=== PATIENT | male | born 1940 | race Caucasian/White ===

== ENCOUNTER 2019-12-11 03:48 | Observation (INO) | payer MEDICARE, BC ==
[2019-12-11] MEDS ORDERED: Sodium Chloride 0.9% 1,000 ML IV ONE (03:54)
[2019-12-11 04:57] LABS: ANION GAP 13.8
--- NOTE | 2019-12-11 05:01 | EDM.PDOC ---
"ED HPI GENERAL MEDICAL PROBLEM - General Chief Complaint: Gastrointestinal Problem Stated Complaint: STOMACH ISSUE-DIVERTICULITIS? Time Seen by Provider: 12/11/19 03:55 Source of Information: Reports: Patient, RN History Limitations: Reports: No Limitations - History of Present Illness INITIAL COMMENTS - FREE TEXT/NARRATIVE: c/o abdominal pain, bloating since yesterday morning, vomiting tonight. Diarrhea x 2 yesterday am at onset. Has hx diverticulitis and sx seem similar. Low grade temps tonight. - Related Data Allergies Allergy/AdvReac Type Severity Reaction Status Date / Time No Known Allergies Allergy Verified 12/11/19 03:55 Home Meds: Home Meds RX: Arginine 500 mg PO DAILY 11/01/14 [History] RX: Dutasteride [Avodart] 0.5 mg PO DAILY 11/01/14 [History] RX: Ezetimibe [Zetia] 10 mg PO BEDTIME 11/01/14 [History] RX: Flaxseed Oil 1,000 mg PO BEDTIME 11/01/14 [History] RX: Levothyroxine Sodium 75 mcg PO DAILY 11/01/14 [History] RX: Metoprolol Tartrate [Lopressor] 12.5 mg PO BID 11/01/14 [History] RX: Multivitamin [Multivitamins] 1 tab PO DAILY 11/01/14 [History] RX: Nitroglycerin [Nitrostat] 0.4 mg PO ASDIRECTED PRN 11/01/14 [History] RX: Omeprazole 20 mg PO DAILY 11/01/14 [History] RX: Ramipril [Altace] 10 mg PO BEDTIME 11/01/14 [History] RX: Simvastatin 20 mg PO BEDTIME 11/01/14 [History] RX: Aspirin [Ecotrin EC] 81 mg PO DAILY 07/14/15 [History] RX: Docusate Calcium [Surfak] 1 tab PO DAILY 07/14/15 [History] Past Medical History HEENT History: Reports: Allergic Rhinitis, Impaired Vision Cardiovascular History: Reports: Bypass, CAD, High Cholesterol, Hypertension Respiratory History: Reports: None Gastrointestinal History: Reports: Diverticulosis, GERD Genitourinary History: Reports: BPH, Prostate Disorder Musculoskeletal History: Reports: Osteoarthritis Other Musculoskeletal History: Lt. knee Meniscus problems, receives cortisone injections Neurological History: Reports: None Psychiatric History: Reports: Anxiety Endocrine/Metabolic History: Reports: Hypothyroidism, Other (See Below) Hematologic History: Reports: None Immunologic History: Reports: None Oncologic (Cancer) History: Reports: None Dermatologic History: Reports: None - Infectious Disease History Infectious Disease History: Reports: Chicken Pox, Shingles - Past Surgical History Head Surgeries/Procedures: Reports: None Cardiovascular Surgical History: Reports: Coronary Artery Bypass GI Surgical History: Reports: Colonoscopy, Hernia, Inguinal Musculoskeletal Surgical History: Reports: Other (See Below) Social & Family History - Family History Family Medical History: Noncontributory - Tobacco Use Smoking Status *Q: Never Smoker - Caffeine Use Caffeine Use: Reports: None - Recreational Drug Use Recreational Drug Use: No - Living Situation & Occupation Living situation: Reports: , with Spouse Occupation: Retired ED ROS GENERAL - Review of Systems Review Of Systems: Comprehensive ROS is negative, except as noted in HPI. ED EXAM, GI/ABD - Physical Exam Exam: See Below Exam Limited By: No Limitations General Appearance: Alert, Mild Distress Ears: Normal External Exam. No: Hearing Grossly Normal (slight decrease) Nose: Normal Inspection Throat/Mouth: Normal Inspection, Normal Voice Head: Atraumatic, Normocephalic Neck: Normal Inspection, Full Range of Motion Respiratory/Chest: No Respiratory Distress, Lungs Clear, Normal Breath Sounds Cardiovascular: Regular Rate, Rhythm GI/Abdominal Exam: Soft, No Distention, Tender (mild upper mid greater than lower), Abnormal Bowel Sounds (slight decrease). No: Guarding, Rigid Back Exam: Full Range of Motion Extremities: Normal Inspection, Normal Range of Motion Neurological: Alert, Oriented, Normal Cognition Psychiatric: Normal Affect Skin Exam: Warm, Dry, Intact, Normal Color, No Rash Course - Vital Signs Last Recorded V/S: Last Vital Signs Temp 98 F 12/12/19 04:00 Pulse 58 L 12/12/19 04:00 Resp 18 12/12/19 04:00 BP 156/69 H 12/12/19 04:00 Pulse Ox 97 12/12/19 04:00 - Orders/Labs/Meds Orders: Active Orders 24 hr Category Date Time Status CULTURE BLOOD [BC] Stat Lab 12/11/19 07:05 Received CULTURE BLOOD [BC] Stat Lab 12/11/19 07:09 Received Blood Culture x2 Reflex Set [OM.PC] Stat Oth 12/11/19 06:58 Ordered Medication Orders Acetaminophen (Tylenol) 650 mg PO Q4H PRN PRN Reason: Pain (Mild 1-3)/fever Last Admin: 12/11/19 16:13 Dose: 650 mg Aspirin (Halfprin) 81 mg PO DAILY [facility] Dutasteride (Avodart) 0.5 mg PO DAILY [facility] Famotidine (Pepcid) 20 mg IVPUSH DAILY [facility] Heparin Sodium (Porcine) (Heparin Sodium) 5,000 units SUBCUT Q8HR [facility] Last Admin: 12/11/19 22:00 Dose: 5,000 units Admin: 12/11/19 14:47 Dose: 5,000 units Potassium Chloride/Sodium Chloride (Normal Saline With 20 Meq Kcl) 1,000 mls @ 125 mls/hr IV ASDIRECTED [facility] Last Admin: 12/12/19 03:50 Dose: 125 mls/hr Infusion: 12/12/19 03:33 Dose: 125 mls/hr Admin: 12/11/19 19:33 Dose: 125 mls/hr Infusion: 12/11/19 18:42 Dose: 125 mls/hr Admin: 12/11/19 10:42 Dose: 125 mls/hr Levothyroxine Sodium (Levothyroxine) 75 mcg PO ACBREAKFAST [facility] Metoprolol Tartrate (Lopressor) 12.5 mg PO BID [facility] Last Admin: 12/11/19 21:59 Dose: 12.5 mg Morphine Sulfate (Morphine) 1 mg IVPUSH Q2H PRN PRN Reason: Pain (severe 7-10) Omeprazole (Omeprazole) 20 mg PO BID@0600,2100 [facility] Last Admin: 12/11/19 22:00 Dose: 20 mg Admin: 12/11/19 10:55 Dose: Not Given Ondansetron HCl (Zofran) 4 mg IVPUSH Q6H PRN PRN Reason: Nausea/Vomiting Ondansetron HCl (Zofran Odt) 4 mg PO Q6H PRN PRN Reason: nausea, able to take PO Ramipril 10 Mg Cap (Pt Own Med) 0 each PO BEDTIME [facility] Last Admin: 12/11/19 21:58 Dose: 1 each Sodium Chloride (Saline Flush) 10 ml FLUSH ASDIRECTED PRN PRN Reason: Keep Vein Open Temazepam (Restoril) 15 mg PO BEDTIME PRN PRN Reason: Sleep Labs: Laboratory Tests 12/11/19 12/11/19 12/11/19 Range/Units 04:21 04:21 04:21 WBC 14.0 H (5.0-10.0) 10^3/uL RBC 4.93 (4.6-6.2) 10^6/uL Hgb 15.0 (14.0-18.0) g/dL Hct 43.2 (40.0-54.0) % MCV 87.6 (80-100) fL MCH 30.4 (27.0-34.0) pg MCHC 34.7 (33.0-35.0) g/dL Plt Count 214 D (150-450) 10^3/uL Neut % (Auto) 92.9 H (42.2-75.2) % Lymph % (Auto) 1.7 L (20.5-50.1) % Mcmullen % (Auto) 5.3 (2-8) % Eos % (Auto) 0.0 L (1.0-3.0) % Baso % (Auto) 0.1 (0.0-1.0) % Sodium 136 (135-145) mmol/L Potassium 3.8 (3.6-5.0) mmol/L Chloride 104 (101-111) mmol/L Carbon Dioxide 22.0 (21.0-31.0) mmol/L Anion Gap 13.8 BUN 28 H (7-18) mg/dL Creatinine 1.3 (0.6-1.3) mg/dL Est Cr Clr Drug Dosing 42.26 mL/min Estimated GFR (MDRD) 53 BUN/Creatinine Ratio 21.53 Glucose 181 H (74-105) mg/dL Lactic Acid 1.6 (0.5-2.0) mmol/L Calcium 8.9 (8.4-10.2) mg/dl Magnesium (1.8-2.5) mg/dL Total Bilirubin 1.0 (0.2-1.0) mg/dL AST 25 (10-42) IU/L ALT 21 (10-60) IU/L Alkaline Phosphatase 63 (42-121) IU/L Troponin I (0.00-0.02) ng/ml Total Protein 7.0 (6.7-8.2) g/dl Albumin 4.1 (3.2-5.5) g/dl Globulin 2.9 Albumin/Globulin Ratio 1.41 Amylase 59 (28-100) U/L Lipase 26 (22-51) U/L Urine Color (YELLOW) Urine Appearance (CLEAR) Urine pH (5.0-9.0) Ur Specific [place] (1.005-1.030) Urine Protein (NEGATIVE) Urine Glucose (UA) (NEGATIVE) Urine Ketones (NEGATIVE) Urine Occult Blood (NEGATIVE) Urine Nitrite (NEGATIVE) Urine Bilirubin (NEGATIVE) Urine Urobilinogen (0.2-1.0) mg/dL Ur Leukocyte Esterase (NEGATIVE) Urine RBC /HPF Urine WBC (0-5/HPF) /HPF Ur Epithelial Cells (NOT SEEN) /HPF Amorphous Sediment (NOT SEEN) /HPF Urine Bacteria (0-FEW/HPF) /HPF Fine Granular Casts (NOT SEEN) /LPF Urine Mucus (NOT SEEN) /LPF 12/11/19 12/11/19 12/11/19 Range/Units 04:21 04:21 05:24 WBC (5.0-10.0) 10^3/uL RBC (4.6-6.2) 10^6/uL Hgb (14.0-18.0) g/dL Hct (40.0-54.0) % MCV (80-100) fL MCH (27.0-34.0) pg MCHC (33.0-35.0) g/dL Plt Count (150-450) 10^3/uL Neut % (Auto) (42.2-75.2) % Lymph % (Auto) (20.5-50.1) % Mcmullen % (Auto) (2-8) % Eos % (Auto) (1.0-3.0) % Baso % (Auto) (0.0-1.0) % Sodium (135-145) mmol/L Potassium (3.6-5.0) mmol/L Chloride (101-111) mmol/L Carbon Dioxide (21.0-31.0) mmol/L Anion Gap BUN (7-18) mg/dL Creatinine (0.6-1.3) mg/dL Est Cr Clr Drug Dosing mL/min Estimated GFR (MDRD) BUN/Creatinine Ratio Glucose (74-105) mg/dL Lactic Acid (0.5-2.0) mmol/L Calcium (8.4-10.2) mg/dl Magnesium 1.9 (1.8-2.5) mg/dL Total Bilirubin (0.2-1.0) mg/dL AST (10-42) IU/L ALT (10-60) IU/L Alkaline Phosphatase (42-121) IU/L Troponin I < 0.02 (0.00-0.02) ng/ml Total Protein (6.7-8.2) g/dl Albumin (3.2-5.5) g/dl Globulin Albumin/Globulin Ratio Amylase (28-100) U/L Lipase (22-51) U/L Urine Color Dark yellow (YELLOW) Urine Appearance Slightly cloudy (CLEAR) Urine pH 6.0 (5.0-9.0) Ur Specific [place] >= 1.030 (1.005-1.030) Urine Protein 30 H (NEGATIVE) Urine Glucose (UA) Negative (NEGATIVE) Urine Ketones 15 H (NEGATIVE) Urine Occult Blood Trace-intact H (NEGATIVE) Urine Nitrite Negative (NEGATIVE) Urine Bilirubin Negative (NEGATIVE) Urine Urobilinogen 0.2 (0.2-1.0) mg/dL Ur Leukocyte Esterase Negative (NEGATIVE) Urine RBC 0-5 /HPF Urine WBC Not seen (0-5/HPF) /HPF Ur Epithelial Cells Rare (NOT SEEN) /HPF Amorphous Sediment Few (NOT SEEN) /HPF Urine Bacteria Few (0-FEW/HPF) /HPF Fine Granular Casts Occasional H (NOT SEEN) /LPF Urine Mucus Few H (NOT SEEN) /LPF Meds: Medications Generic Name Dose Route Start Last Admin Trade Name Jose PRN Reason Stop Dose Admin Acetaminophen 650 mg 12/11/19 10:14 12/11/19 16:13 Tylenol PO 650 mg Q4H PRN Administration Pain (Mild 1-3)/fever Aspirin 81 mg 12/11/19 16:28 Halfprin PO DAILY [facility] Dutasteride 0.5 mg 12/11/19 16:25 Avodart PO DAILY [facility] Famotidine 20 mg 12/12/19 09:00 Pepcid IVPUSH DAILY [facility] Heparin Sodium (Porcine) 5,000 units 12/11/19 14:00 12/11/19 22:00 Heparin Sodium SUBCUT 5,000 units Q8HR [facility] Administration Potassium Chloride/Sodium Chloride 1,000 mls @ 125 mls/hr 12/11/19 10:30 03:50 Normal Saline With 20 Meq Kcl IV 125 mls/hr ASDIRECTED [facility] Administration Levothyroxine Sodium 75 mcg 12/11/19 16:29 Levothyroxine PO ACBREAKFAST [facility] Metoprolol Tartrate 12.5 mg 12/11/19 21:00 12/11/19 21:59 Lopressor PO 12.5 mg BID [facility] Administration Morphine Sulfate 1 mg 12/11/19 10:14 Morphine IVPUSH Q2H PRN Pain (severe 7-10) Omeprazole 20 mg 12/11/19 10:15 12/11/19 22:00 Omeprazole PO 20 mg BID@0600,2100 [facility] Administration Ondansetron HCl 4 mg 12/11/19 10:14 Zofran IVPUSH Q6H PRN Nausea/Vomiting Ondansetron HCl 4 mg 12/11/19 10:14 Zofran Odt PO Q6H PRN nausea, able to take PO Ramipril 10 Mg Cap 0 each 12/11/19 21:00 12/11/19 21:58 Pt Own Med PO 1 each BEDTIME [facility] Administration Sodium Chloride 10 ml 12/11/19 10:14 Saline Flush FLUSH ASDIRECTED PRN Keep Vein Open Temazepam 15 mg 12/11/19 10:14 Restoril PO BEDTIME PRN Sleep Discontinued Medications Generic Name Dose Route Start Last Admin Trade Name Freq PRN Reason Stop Dose Admin Aspirin 81 mg 12/11/19 11:00 12/11/19 10:55 Halfprin PO Not Given DAILY [facility] Dutasteride 0.5 mg 12/11/19 11:00 12/11/19 10:55 Avodart PO Not Given DAILY [facility] Famotidine 20 mg 12/11/19 06:18 12/11/19 06:23 Pepcid IVPUSH 12/11/19 06:19 20 mg ONETIME ONE Administration Famotidine 20 mg 12/11/19 11:15 12/11/19 13:42 Pepcid IVPUSH Not Given BID [facility] Sodium Chloride 1,000 mls @ 500 mls/hr 12/11/19 03:54 12/11/19 04:39 Normal Saline IV 12/11/19 05:53 500 mls/hr .BOLUS ONE Administration Ceftriaxone Sodium 1 gm/ 50 mls @ 50 mls/hr 12/11/19 06:50 12/11/19 07:18 Sodium Chloride IV 12/11/19 07:49 50 mls/hr ONETIME ONE Administration Iopamidol 100 ml 12/11/19 05:06 12/11/19 06:30 Isovue-300 (61%) IVPUSH 12/11/19 05:07 75 ml ONETIME ONE Administration Levothyroxine Sodium 75 mcg 12/11/19 10:15 12/11/19 10:55 Levothyroxine PO Not Given ACBREAKFAST [facility] Metoprolol Tartrate 12.5 mg 12/11/19 10:15 12/11/19 10:45 Lopressor PO 12.5 mg BID [facility] Administration Ramipril Confirm 12/11/19 20:34 12/11/19 21:59 Altace Administered 12/11/19 20:35 10 mg Dose Administration 10 mg .[facility] Interpretation Free Text/Narrative:: [facility] - [facility] Final Radiology Report Call: [phone] assistance Online chat: [email or web address] Name: ЮЛИЯ HUGGINS Age: 79Years M Date: 12/11/2019 SSN: -- : [id number] Study: CT ABDOMEN/PELVIS W Requesting Physician: LAWANDA RIVAS Images: [id number] Addl Studies: Provided Clinical History: ABDOMINAL PAIN, BLOATING Contrast: With Contrast Medium: ISOVUE 300 Contrast Amount: 75 mL Contrast Method: RAC Page 1 of 2 PROCEDURE INFORMATION: Exam: CT Abdomen And Pelvis With Contrast Exam date and time: 12/11/2019 5:55 AM Age: 79 years old Clinical indication: Bloating; Additional info: Abdominal pain, bloating TECHNIQUE: Imaging protocol: Computed tomography of the abdomen and pelvis with intravenous contrast. Radiation optimization: All CT scans at this facility use at least one of these dose optimization techniques: automated exposure control; mA and/or kV adjustment per patient size (includes targeted exams where dose is matched to clinical indication); or iterative reconstruction. Contrast material: ISOVUE 300; Contrast volume: 75 ml; Contrast route: RAC; COMPARISON: CT Abdomen Pelvis w Cont 06/23/2015 10:17 AM FINDINGS: Mediastinum: small hiatal hernia. Liver: Normal. No mass. Gallbladder and bile ducts: Normal. No calcified stones. No ductal dilation. Pancreas: Normal. No ductal dilation. Spleen: Normal. No splenomegaly. Adrenals: 3.8 cm right adrenal mass stable since the prior study dated 2014. 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 The mass extends into the right renal pelvis and is causing mild hydronephrosis of the right kidney with decreased function of the right kidney noted. Stomach and bowel: dilated loops of large and small bowel consistent with an ileus. Colonic diverticulosis but no diverticulitis. Appendix: No evidence of appendicitis. ЮЛИЯ HUGGINS | Final Radiology Report CONFIDENTIALITY STATEMENT This report is intended only for use by the referring physician, and only in accordance with law. If you received this in error, call [phone]. Page 2 of 2 Intraperitoneal space: Unremarkable. No free air. No significant fluid collection. Vasculature: The mass extends into the right renal vein but not into the IVC. Lymph nodes: Unremarkable. No enlarged lymph nodes. Bladder: Unremarkable as visualized. Reproductive: enlarged prostate gland. Bones/joints: Unremarkable. No acute fracture. Soft tissues: Unremarkable. IMPRESSION: 1. 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 The mass extends into the right renal pelvis and is causing mild hydronephrosis of the right kidney with decreased function of the right kidney noted. The mass also extends into the right renal vein but not into the IVC. 3. Dilated loops of large and small bowel consistent with an ileus. 4. Enlarged prostate gland. 5. Colonic diverticulosis but no diverticulitis. Thank you for allowing us to participate in the care of your patient. Dictated and Authenticated by: Julien Rhodes MD 12/11/2019 6:35 AM Central Time ([place] & [place]) - Re-Assessments/Exams Free Text/Narrative Re-Assessment/Exam: 12/11/19 07:[address] Cantu accepting patient for observation admission [facility]. Results of CT reviewed with patient and his . Departure - Departure Time of Disposition: 07:14 Disposition: Refer to Observation Condition: Good Clinical Impression: Diverticulosis of sigmoid colon, Renal mass - Discharge Information *PRESCRIPTION DRUG MONITORING PROGRAM REVIEWED*: No *COPY OF PRESCRIPTION DRUG MONITORING REPORT IN PATIENT ZENAIDA: No Sepsis Event Note - Evaluation Sepsis Screening Result: No Definite Risk - Focused Exam Date Exam was Performed: 12/12/19 Time Exam was Performed: 04:28 - My Orders Last 24 Hours: My Active Orders 12/11/19 06:58 Blood Culture x2 Reflex Set [OM.PC] Stat 12/11/19 07:05 CULTURE BLOOD [BC] Stat 12/11/19 07:09 CULTURE BLOOD [BC] Stat - Assessment/Plan Last 24 Hours: My Active Orders 12/11/19 06:58 Blood Culture x2 Reflex Set [OM.PC] Stat 12/11/19 07:05 CULTURE BLOOD [BC] Stat 12/11/19 07:09 CULTURE BLOOD [BC] Stat"
[2019-12-11] MEDS ORDERED: Iopamidol 612 MG/ML 100 ML Bottle IVPUSH ONE (05:06)
[2019-12-11] MEDS ORDERED: Famotidine 20 MG/2 ML SDV IVPUSH ONE (06:18)
[2019-12-11] MEDS ORDERED: cefTRIAXone 1 GM in Sodium Chloride 0.9% 50 ML IV ONE (06:50)
[2019-12-11] MEDS ORDERED: Temazepam 15 MG Cap PO PRN (10:14)
[2019-12-11] MEDS ORDERED: Acetaminophen 325 MG Tab PO PRN (10:14)
[2019-12-11] MEDS ORDERED: Ondansetron 4 MG/2 ML SDV IVPUSH PRN (10:14)
[2019-12-11] MEDS ORDERED: Morphine 2 MG/ML Syringe IVPUSH PRN (10:14)
[2019-12-11] MEDS ORDERED: Sodium Chloride 0.9% 10 ML Syringe FLUSH PRN (10:14)
[2019-12-11] MEDS ORDERED: Ondansetron 4 MG Tab.DIS PO PRN (10:14)
[2019-12-11] MEDS ORDERED: Metoprolol Tartrate 25 MG Tab PO SCH (10:15)
[2019-12-11] MEDS ORDERED: Levothyroxine 75 MCG Tab PO SCH (10:15)
[2019-12-11] MEDS: NS + KCl 20mEq/L 1,000 ML IV SCH ×2 (10:42→19:33)
[2019-12-11] MEDS: Omeprazole 20 MG Cap.CR PO SCH ×2 (10:55→22:00)
[2019-12-11] MEDS ORDERED: Dutasteride 0.5 MG Cap PO SCH (11:00)
[2019-12-11] MEDS ORDERED: Aspirin 81 MG Tab.EC PO SCH (11:00)
[2019-12-11] MEDS ORDERED: Famotidine 20 MG/2 ML SDV IVPUSH SCH (11:15)
--- NOTE | 2019-12-11 11:16 | PCM.HP ---
H&P History of Present Illness - General Date of Service: 12/11/19 Admit Problem/Dx: Admission Diagnosis/Problem Admission Diagnosis/Problem Ileus Source of Information: Patient, Provider (MICHELLE Shannon) - History of Present Illness Initial Comments - Free Text/Narative: Presented with 2 days of nausea, vomiting. The patient developed abdominal distention, nausea, vomiting and distention Tuesday evening. Discontinued during Tuesday The vomitus is clear. No associated fever or chills. The abdominal distention and actually improved. No shortness of breath, no chest pain. No significant leg edema. No sick contact. No unusual or leftover meal. The patient came into the emergency room. CT showed a levels and renal mass. He was given antiemetics. And he feels improved. - Related Data Allergies/Adverse Reactions: Allergies Allergy/AdvReac Type Severity Reaction Status Date / Time No Known Allergies Allergy Verified 12/11/19 03:55 Home Medications: Home Meds Arginine 500 mg PO DAILY 11/01/14 [History] Dutasteride [Avodart] 0.5 mg PO DAILY 11/01/14 [History] Ezetimibe [Zetia] 10 mg PO BEDTIME 11/01/14 [History] Flaxseed Oil 1,000 mg PO BEDTIME 11/01/14 [History] Levothyroxine Sodium 75 mcg PO DAILY 11/01/14 [History] Metoprolol Tartrate [Lopressor] 12.5 mg PO BID 11/01/14 [History] Multivitamin [Multivitamins] 1 tab PO DAILY 11/01/14 [History] Nitroglycerin [Nitrostat] 0.4 mg PO ASDIRECTED PRN 11/01/14 [History] Omeprazole 20 mg PO DAILY 11/01/14 [History] Ramipril [Altace] 10 mg PO BEDTIME 11/01/14 [History] Simvastatin 20 mg PO BEDTIME 11/01/14 [History] Aspirin [Ecotrin EC] 81 mg PO DAILY 07/14/15 [History] Docusate Calcium [Surfak] 1 tab PO DAILY 07/14/15 [History] Past Medical History HEENT History: Reports: Allergic Rhinitis, Impaired Vision Cardiovascular History: Reports: Bypass, CAD, High Cholesterol, Hypertension Respiratory History: Reports: None Gastrointestinal History: Reports: Diverticulosis, GERD, Hiatal Hernia Genitourinary History: Reports: BPH, Prostate Disorder Musculoskeletal History: Reports: Osteoarthritis Other Musculoskeletal History: Lt. knee Meniscus problems, receives cortisone injections Neurological History: Reports: None Psychiatric History: Reports: Anxiety Endocrine/Metabolic History: Reports: Hypothyroidism Hematologic History: Reports: None Immunologic History: Reports: None Oncologic (Cancer) History: Reports: None Dermatologic History: Reports: None - Infectious Disease History Infectious Disease History: Reports: Chicken Pox, Shingles - Past Surgical History Head Surgeries/Procedures: Reports: None Cardiovascular Surgical History: Reports: Coronary Artery Bypass GI Surgical History: Reports: Colonoscopy, EGD, Hernia, Inguinal Musculoskeletal Surgical History: Reports: Other (See Below) Other Musculoskeletal Surgeries/Procedures:: torn meniscus Social & Family History - Family History Family Medical History: Noncontributory - Tobacco Use Smoking Status *Q: Former Smoker Used Tobacco, but Quit: Yes Month/Year Tobacco Last Used: 1985 - Caffeine Use Caffeine Use: Reports: Coffee - Recreational Drug Use Recreational Drug Use: No - Living Situation & Occupation Living situation: Reports: , with Spouse Occupation: Retired H&P Review of Systems - Review of Systems: Review Of Systems: See Below General: Denies: Fever, Chills Pulmonary: Denies: Shortness of Breath Cardiovascular: Denies: Chest Pain, Edema Gastrointestinal: Reports: Abdominal Pain, Diarrhea, Nausea, Vomiting Genitourinary: Denies: Dysuria Psychiatric: Denies: Confusion Exam - Exam Exam: See Below - Vital Signs Vital Signs: Last Vital Signs Temp 98.6 F 12/11/19 07:43 Pulse 75 12/11/19 10:45 Resp 20 12/11/19 07:43 BP 142/58 H 12/11/19 10:45 Pulse Ox 97 12/11/19 07:43 Weight: 178 lb 9.6 oz - Exam General: Alert, Oriented Neck: Supple Lungs: Clear to Auscultation, Normal Respiratory Effort Cardiovascular: Regular Rate, Regular Rhythm GI/Abdominal Exam: Distended (Minimally distended some tympanic sounds), Abnormal Bowel Sounds (Hyperactive). No: Guarding, Rigid, Rebound, Tender Extremities: Pedal Edema (Trace bilateral) - Patient Data Lab Results Last 24 hrs: Laboratory Results - last 24 hr 12/11/19 12/11/19 12/11/19 Range/Units 04:21 04:21 04:21 WBC 14.0 H (5.0-10.0) 10^3/uL RBC 4.93 (4.6-6.2) 10^6/uL Hgb 15.0 (14.0-18.0) g/dL Hct 43.2 (40.0-54.0) % MCV 87.6 (80-100) fL MCH 30.4 (27.0-34.0) pg MCHC 34.7 (33.0-35.0) g/dL Plt Count 214 D (150-450) 10^3/uL Neut % (Auto) 92.9 H (42.2-75.2) % Lymph % (Auto) 1.7 L (20.5-50.1) % [place] % (Auto) 5.3 (2-8) % Eos % (Auto) 0.0 L (1.0-3.0) % Baso % (Auto) 0.1 (0.0-1.0) % Sodium 136 (135-145) mmol/L Potassium 3.8 (3.6-5.0) mmol/L Chloride 104 (101-111) mmol/L Carbon Dioxide 22.0 (21.0-31.0) mmol/L Anion Gap 13.8 BUN 28 H (7-18) mg/dL Creatinine 1.3 (0.6-1.3) mg/dL Est Cr Clr Drug Dosing 42.26 mL/min Estimated GFR (MDRD) 53 BUN/Creatinine Ratio 21.53 Glucose 181 H (74-105) mg/dL Lactic Acid 1.6 (0.5-2.0) mmol/L Calcium 8.9 (8.4-10.2) mg/dl Magnesium (1.8-2.5) mg/dL Total Bilirubin 1.0 (0.2-1.0) mg/dL AST 25 (10-42) IU/L ALT 21 (10-60) IU/L Alkaline Phosphatase 63 (42-121) IU/L Troponin I (0.00-0.02) ng/ml Total Protein 7.0 (6.7-8.2) g/dl Albumin 4.1 (3.2-5.5) g/dl Globulin 2.9 Albumin/Globulin Ratio 1.41 Amylase 59 (28-100) U/L Lipase 26 (22-51) U/L Urine Color (YELLOW) Urine Appearance (CLEAR) Urine pH (5.0-9.0) Ur Specific [place] (1.005-1.030) Urine Protein (NEGATIVE) Urine Glucose (UA) (NEGATIVE) Urine Ketones (NEGATIVE) Urine Occult Blood (NEGATIVE) Urine Nitrite (NEGATIVE) Urine Bilirubin (NEGATIVE) Urine Urobilinogen (0.2-1.0) mg/dL Ur Leukocyte Esterase (NEGATIVE) Urine RBC /HPF Urine WBC (0-5/HPF) /HPF Ur Epithelial Cells (NOT SEEN) /HPF Amorphous Sediment (NOT SEEN) /HPF Urine Bacteria (0-FEW/HPF) /HPF Fine Granular Casts (NOT SEEN) /LPF Urine Mucus (NOT SEEN) /LPF 12/11/19 12/11/19 12/11/19 Range/Units 04:21 04:21 05:24 WBC (5.0-10.0) 10^3/uL RBC (4.6-6.2) 10^6/uL Hgb (14.0-18.0) g/dL Hct (40.0-54.0) % MCV (80-100) fL MCH (27.0-34.0) pg MCHC (33.0-35.0) g/dL Plt Count (150-450) 10^3/uL Neut % (Auto) (42.2-75.2) % Lymph % (Auto) (20.5-50.1) % [place] % (Auto) (2-8) % Eos % (Auto) (1.0-3.0) % Baso % (Auto) (0.0-1.0) % Sodium (135-145) mmol/L Potassium (3.6-5.0) mmol/L Chloride (101-111) mmol/L Carbon Dioxide (21.0-31.0) mmol/L Anion Gap BUN (7-18) mg/dL Creatinine (0.6-1.3) mg/dL Est Cr Clr Drug Dosing mL/min Estimated GFR (MDRD) BUN/Creatinine Ratio Glucose (74-105) mg/dL Lactic Acid (0.5-2.0) mmol/L Calcium (8.4-10.2) mg/dl Magnesium 1.9 (1.8-2.5) mg/dL Total Bilirubin (0.2-1.0) mg/dL AST (10-42) IU/L ALT (10-60) IU/L Alkaline Phosphatase (42-121) IU/L Troponin I < 0.02 (0.00-0.02) ng/ml Total Protein (6.7-8.2) g/dl Albumin (3.2-5.5) g/dl Globulin Albumin/Globulin Ratio Amylase (28-100) U/L Lipase (22-51) U/L Urine Color Dark yellow (YELLOW) Urine Appearance Slightly cloudy (CLEAR) Urine pH 6.0 (5.0-9.0) Ur Specific [place] >= 1.030 (1.005-1.030) Urine Protein 30 H (NEGATIVE) Urine Glucose (UA) Negative (NEGATIVE) Urine Ketones 15 H (NEGATIVE) Urine Occult Blood Trace-intact H (NEGATIVE) Urine Nitrite Negative (NEGATIVE) Urine Bilirubin Negative (NEGATIVE) Urine Urobilinogen 0.2 (0.2-1.0) mg/dL Ur Leukocyte Esterase Negative (NEGATIVE) Urine RBC 0-5 /HPF Urine WBC Not seen (0-5/HPF) /HPF Ur Epithelial Cells Rare (NOT SEEN) /HPF Amorphous Sediment Few (NOT SEEN) /HPF Urine Bacteria Few (0-FEW/HPF) /HPF Fine Granular Casts Occasional H (NOT SEEN) /LPF Urine Mucus Few H (NOT SEEN) /LPF Result Diagrams: 12/11/19 04:21 12/11/19 04:21 [place] Results Last 24 hrs: Microbiology 12/11/19 06:35 Stool Occult Blood ([facility]) - Final Stool / Feces 12/11/19 04:38 Influenza Type A Antigen Screen - Final Nasal, Unspecified NEGATIVE INFLUENZA A VIRUS AG REFERENCE RANGE: NEGATIVE Influenza Type B Antigen Screen - Final NEGATIVE INFLUENZA B VIRUS AG REFERENCE RANGE: NEGATIVE - Problem List (1) Ileus SNOMED Code(s): 060239354 ICD Code: K56.7 - ILEUS, UNSPECIFIED Status: Acute Current Visit: Yes (2) Renal mass SNOMED Code(s): 800096901 ICD Code: N28.89 - OTHER SPECIFIED DISORDERS OF KIDNEY AND URETER Status: Acute Current Visit: Yes (3) HTN (hypertension), benign SNOMED Code(s): 28363626 ICD Code: I10 - ESSENTIAL (PRIMARY) HYPERTENSION Status: Acute Current Visit: No Problem List Initiated/Reviewed/Updated: Yes Orders Last 24hrs: Active Orders 24 hr Category Date Time Status Admission Diagnosis [ADT] Stat ADT 12/11/19 07:03 Ordered Admission Status [Patient Status] [ADT] Routine ADT 12/11/19 07:03 Active Antiembolic Devices [RC] PER UNIT ROUTINE Care 12/11/19 10:15 Ordered Oxygen Therapy [RC] PRN Care 12/11/19 10:15 Ordered Peripheral IV Care [RC] . DIRECTED Care 12/11/19 10:15 Ordered Up With Assistance [RC] ASDIRECTED Care 12/11/19 10:14 Ordered VTE/DVT Education [RC] PER UNIT ROUTINE Care 12/11/19 10:15 Ordered Vital Signs [RC] Q4H Care 12/11/19 10:15 Ordered Clear Liquid Diet [DIET] Diet 12/11/19 Lunch Ordered BASIC METABOLIC PANEL,BMP [CHEM] AM Lab 12/12/19 05:11 Ordered CBC W/O DIFF,HEMOGRAM [HEME] AM Lab 12/12/19 05:11 Ordered CULTURE BLOOD [BC] Stat Lab 12/11/19 07:05 Received CULTURE BLOOD [BC] Stat Lab 12/11/19 07:09 Received Acetaminophen [Tylenol] Med 12/11/19 10:14 Ordered 650 mg PO Q4H PRN Aspirin [Halfprin] Med 12/11/19 11:00 Ordered 81 mg PO DAILY Dutasteride [Avodart] Med 12/11/19 11:00 Ordered 0.5 mg PO DAILY Famotidine [Pepcid] Med 12/11/19 11:15 Ordered 20 mg IVPUSH BID Heparin Sodium Med 12/11/19 14:00 Ordered 5,000 units SUBCUT Q8HR Levothyroxine Med 12/11/19 10:15 Ordered 75 mcg PO DAILY Metoprolol Tartrate [Lopressor] Med 12/11/19 10:15 Ordered 12.5 mg PO BID Morphine Med 12/11/19 10:14 Ordered 1 mg IVPUSH Q2H PRN Omeprazole Med 12/11/19 10:15 Ordered 20 mg PO BID Ondansetron [Zofran ODT] Med 12/11/19 10:14 Ordered 4 mg PO Q6H PRN Ondansetron [Zofran] Med 12/11/19 10:14 Ordered 4 mg IVPUSH Q6H PRN Ramipril [Altace] Med 12/11/19 21:00 Ordered 10 mg PO BEDTIME Sodium Chloride 0.9% [Saline Flush] Med 12/11/19 10:14 Ordered 10 ml FLUSH ASDIRECTED PRN Sodium Chloride 0.9% with KCl 20 mEq @ 125 mL/Hr (1000 Med 12/11/19 10:30 Ordered mL) NS + KCl 20mEq/L [Normal Saline with 20 mEq KCl] 1,000 ml IV ASDIRECTED Temazepam [Restoril] Med 12/11/19 10:14 Ordered 15 mg PO BEDTIME PRN Antiembolic Hose [OM.PC] Per Unit Routine Oth 12/11/19 10:15 Ordered Blood Culture x2 Reflex Set [OM.PC] Stat Oth 12/11/19 06:58 Ordered Peripheral IV Insertion Adult [OM.PC] Routine Oth 12/11/19 10:14 Ordered Resuscitation Status Routine Resus Stat 12/11/19 10:14 Ordered Medication Orders Acetaminophen (Tylenol) 650 mg PO Q4H PRN PRN Reason: Pain (Mild 1-3)/fever Aspirin (Halfprin) 81 mg PO DAILY [facility] Last Admin: 12/11/19 10:55 Dose: Not Given Dutasteride (Avodart) 0.5 mg PO DAILY [facility] Last Admin: 12/11/19 10:55 Dose: Not Given Famotidine (Pepcid) 20 mg IVPUSH BID [facility] Heparin Sodium (Porcine) (Heparin Sodium) 5,000 units SUBCUT Q8HR [facility] Potassium Chloride/Sodium Chloride (Normal Saline With 20 Meq Kcl) 1,000 mls @ 125 mls/hr IV ASDIRECTED [facility] Last Admin: 12/11/19 10:42 Dose: 125 mls/hr Levothyroxine Sodium (Levothyroxine) 75 mcg PO ACBREAKFAST [facility] Last Admin: 12/11/19 10:55 Dose: Not Given Metoprolol Tartrate (Lopressor) 12.5 mg PO BID [facility] Last Admin: 12/11/19 10:45 Dose: 12.5 mg Morphine Sulfate (Morphine) 1 mg IVPUSH Q2H PRN PRN Reason: Pain (severe 7-10) Omeprazole (Omeprazole) 20 mg PO BID@0600,2100 [facility] Last Admin: 12/11/19 10:55 Dose: Not Given Ondansetron HCl (Zofran) 4 mg IVPUSH Q6H PRN PRN Reason: Nausea/Vomiting Ondansetron HCl (Zofran Odt) 4 mg PO Q6H PRN PRN Reason: nausea, able to take PO Ramipril (Altace) 10 mg PO BEDTIME [facility] Sodium Chloride (Saline Flush) 10 ml FLUSH ASDIRECTED PRN PRN Reason: Keep Vein Open Temazepam (Restoril) 15 mg PO BEDTIME PRN PRN Reason: Sleep Assessment/Plan Comment:: 79-year-old with a history of hypertension, coronary artery disease presented with abdominal distention, nausea, vomiting, diarrhea. ct abd IMPRESSION: 1. 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 The mass extends into the right renal pelvis and is causing mild hydronephrosis of the right kidney with decreased function of the right kidney noted. The mass also extends into the right renal vein but not into the IVC. 3. Dilated loops of large and small bowel consistent with an ileus. 4. Enlarged prostate gland. 5. Colonic diverticulosis but no diverticulitis. Thank you for allowing us to participate in the care of your patient. Ileus, probably gastroenteritis Symptoms improved after nausea medications No apparent obstruction on CT Examination is benign Treat conservatively with Nothing by mouth or clear liquid diet depending on how he tolerates. If further vomiting will use NG tube IV fluids and electrolyte replacement History of coronary artery disease Continue aspirin, metoprolol, DIONE inhibitor Elevated blood sugar noted We'll recheck fasting sugar in the morning solid right renal mass consistent with a primary renal cell carcinoma noted on CT Will need follow-up with urology DVT prophylaxis with subcutaneous heparin
[2019-12-11] MEDS: Heparin Sodium 5,000 Units/ML Vial SUBCUT SCH ×2 (14:47→22:00)
[2019-12-11] MEDS ORDERED: DUTASTERIDE 0.5 MG PO SCH (16:25)
[2019-12-11] MEDS ORDERED: Aspirin 81 MG Tab.EC **PT OWN MED PO SCH (16:28)
[2019-12-11] MEDS ORDERED: LEVOTHYROXINE 75 MCG PO SCH (16:29)
[2019-12-11] MEDS ORDERED: Ramipril 5 MG Cap ONE (20:34)
[2019-12-11] MEDS ORDERED: RAMIPRIL 10 MG PO SCH (21:00)
[2019-12-11] MEDS: METOPROLOL TARTRATE 25 MG PO SCH (21:59)
[2019-12-12] MEDS: NS + KCl 20mEq/L 1,000 ML IV SCH (03:50)
[2019-12-12] MEDS: Heparin Sodium 5,000 Units/ML Vial SUBCUT SCH ×2 (06:48→15:12)
[2019-12-12] MEDS: Omeprazole 20 MG Cap.CR PO SCH (06:48)
[2019-12-12 07:21] LABS: ANION GAP 12.2; CHLORIDE,CL 112 mmol/L (101-111); SODIUM,NA 141 mmol/L (135-145)
[2019-12-12] MEDS ORDERED: Famotidine 20 MG/2 ML SDV IVPUSH SCH (09:00)
[2019-12-12] MEDS: METOPROLOL TARTRATE 25 MG PO SCH (09:20)
--- NOTE | 2019-12-12 10:17 | PN ---
DATE: 12/12/2019 SUBJECTIVE: The patient is a 79-year-old gentleman who was admitted because of nausea and vomiting. CAT scan of the abdomen showed ileus. The patient since admission had a large bowel movement. The patient has been feeling good. Incidental finding on the CAT scan of the abdomen and pelvis showed right renal mass, which is highly suspicious for renal cell carcinoma. The patient this morning is doing well and he has been tolerating the clear liquid diet. He denies any more nausea, vomiting, or any abdominal pain. The patient is actually getting inpatient and would like to go home today. The patient denies any chest pain, shortness of breath, nor any other complaints. OBJECTIVE: Vital Signs: Blood pressure is 167/72, pulse of 60, respirations of 16, temperature of 97.8, saturation is 96% on room air. Heart: Regular rate and rhythm. Normal S1 and S2. No gallops. No rubs. Lungs: Equal bilaterally. No crackles. No wheezing. Abdomen: Soft, nontender. Bowel sounds normoactive. Extremities: Negative for any pedal edema. No calf tenderness. MEDICATIONS: Reviewed. PLAN: We will advance his diet as tolerated and if he is tolerating his oral intake and diet plus regular diet, then we will discontinue the IV fluids. As per his request, we will discharge him home today if he is doing well. We will make an appointment for him to see Dr. Gonzales tomorrow as per his request and with regard to his renal lesion, he would like to discuss this with Dr. Gonzales as he is planning to probably have this taken care of in [facility]. [facility] /[id number]
[2019-12-12 11:31] VITALS: BP 146/73; PULSE 52
--- NOTE | 2019-12-12 13:44 | PN ---
DATE: 12/12/2019 SUBJECTIVE: The patient is doing well. He had his lunch and on a regular diet and he tolerated it well. He denies any abdominal pain. No nausea, vomiting, and he has been passing his gas, and he would like to go home today. OBJECTIVE: Vital Signs: Blood pressure is 146/73, pulse of 52, respiration of 18, temperature of 97.6, and saturation is 99%. Heart: Regular rate and rhythm. No gallops. No rubs. Lungs: Equal bilaterally. No crackles, no wheezing. Abdomen: Soft. Nontender. Bowel sounds positive. Extremities: Negative for any pedal edema. No calf tenderness. PLAN: We will discharge the patient home today, and he will be seeing Dr. Gonzales in 2 days. [facility] /[id number]
--- NOTE | 2019-12-12 14:05 | DISCH ---
FINAL DIAGNOSES: 1. Nausea and vomiting secondary to ileus. 2. Right renal mass. 3. Hypertension. 4. Benign prostatic hyperplasia. BRIEF HISTORY OF PRESENT ILLNESS: Please see H and P. PERTINENT LAB, X-RAY, AND OTHER TESTS: See H and P. CAT scan of the abdomen showed a 4.6 solid renal mass consistent with primary renal cell carcinoma and there are dilated loops of bowel, large and small bowel consistent with ileus, and there is enlarged prostate gland. HOSPITAL COURSE: The patient was admitted to General Medicine floor. He was started on IV fluids. He was kept n.p.o. He was given some Zofran and was also given Rocephin IV. The patient did well with the above regimen. The patient had a good bowel movement and his nausea and vomiting improved. The patient's diet was slowly advanced, and he tolerated it well and then he was subsequently discharged. DISCHARGE INSTRUCTIONS: We will resume his previous home medication, and we will also continue with oral antibiotics for the next 5 to 7 days and with regard to his right renal mass, he will be discussing this with Dr. Gonzales as he is planning to have this taken care of in [facility]. CONDITION ON DISCHARGE: Improved. [facility] /[id number]
== END 2019-12-12 14:14 | disposition home or self-care (01) ==
LOC: DL.ED 03:48 → DL.MS 07:03
PROVIDERS: ADMIT Internal Medicine; ATTEND Internal Medicine
DX: K56.7 Ileus, unspecified (principal); N28.89 Other specified disorders of kidney and ureter; I10 Essential (primary) hypertension; N40.0 Benign prostatic hyperplasia without lower urinary tract symptoms; I25.10 Atherosclerotic heart disease of native coronary artery without angina pectoris; E78.00 Pure hypercholesterolemia, unspecified; K21.9 Gastro-esophageal reflux disease without esophagitis; E03.9 Hypothyroidism, unspecified; R73.9 Hyperglycemia, unspecified; N13.30 Unspecified hydronephrosis; K57.30 Diverticulosis of large intestine without perforation or abscess without bleeding; Z79.82 Long term (current) use of aspirin; Z87.891 Personal history of nicotine dependence; Z79.899 Other long term (current) drug therapy
CPT/HCPCS: 36415; 74177; 80048; 80053; 81001; 82150; 82272; 83605; 83690; 83735; 84484; 85025; 85027; 87040; 87804; A9270-GY; J0696; J1644; J3480; J3490; J7030; J7050; Q9967

== ENCOUNTER 2024-02-17 05:24 | Day surgery (SDC) | payer MEDICARE, BC ==
[2024-02-17] MEDS: Dextrose 5%-0.45% NaCl 1,000 ML IV SCH (05:57)
[2024-02-17] MEDS ORDERED: Midazolam 1 MG/ML 2 ML SDV ONE (05:58)
[2024-02-17] MEDS ORDERED: fentaNYL 100 MCG/2 ML SDV ONE (05:59)
[2024-02-17] MEDS: fentaNYL 100 MCG/2 ML SDV IV ONE ×2 (06:20→06:21)
[2024-02-17] MEDS: Midazolam 1 MG/ML 2 ML SDV IV ONE ×2 (06:21→06:23)
[2024-02-17 08:48] VITALS: BP 115/52; PULSE 45
== END 2024-02-17 09:00 | disposition home or self-care (01) ==
LOC: DL.ENDO 05:24
PROVIDERS: ATTEND Internal Medicine Gastroenterology
DX: K63.5 Polyp of colon (principal); E78.5 Hyperlipidemia, unspecified; I10 Essential (primary) hypertension; E03.9 Hypothyroidism, unspecified; K57.30 Diverticulosis of large intestine without perforation or abscess without bleeding; R10.13 Epigastric pain
CPT/HCPCS: 43239; 87077; J2250; J3010; J7042; 88305